=== PATIENT | female | born 1965 | race Two or more races ===

== ENCOUNTER → 2020-04-17 | Outpatient (CLI) | payer OTHER | END | disposition home or self-care (01) | LOC: LAB 10:36 | PROVIDERS: ATTEND Preventive Medicine Preventive Medicine/Occupational Environmental Medicine | DX: Z02.1 Encounter for pre-employment examination (principal) | CPT/HCPCS: 36415; 86706; 86735; 86762; 86765; 86787 ==

== ENCOUNTER 2020-06-10 13:26 | Emergency (ER) | payer MEDICAID, OTHER ==
[~2020-06-10] VITALS: Ht 160 cm; Wt 78.0 kg
[2020-06-10 13:50] VITALS: BP 141/104
[2020-06-10] MEDS ORDERED: HYDROmorphone HCL 2 MG/ML VL IM ONE (14:30)
[2020-06-10] MEDS ORDERED: PROMETHAZINE HCL 25 MG/ML 1ML IM ONE (14:30)
== END 2020-06-10 15:27 | disposition home or self-care (01) ==
LOC: ER 13:26
DX: G43.909 Migraine, unspecified, not intractable, without status migrainosus (principal); R11.0 Nausea; I50.9 Heart failure, unspecified
CPT/HCPCS: 96372; 99284; J1170; J2550

== ENCOUNTER → 2020-07-07 | Outpatient (CLI) | payer OTHER | END | disposition home or self-care (01) | LOC: LAB 10:40 | PROVIDERS: ATTEND Physician Assistant | DX: Z20.828 Contact with and (suspected) exposure to other viral communicable diseases (principal) | CPT/HCPCS: C9803; U0003 ==

== ENCOUNTER 2020-08-19 11:45 | Emergency (ER) | payer BC, MEDICAID ==
[~2020-08-19] VITALS: Ht 160 cm; Wt 70.8 kg
[2020-08-19] MEDS ORDERED: ACETAMINOPHEN 325 MG TAB PO ONE (16:15)
[2020-08-19] MEDS ORDERED: ONDANSETRON ODT 4 MG TAB PO ONE (16:15)
[2020-08-19] MEDS ORDERED: cefTRIAXone SOD 1,000 MG VL IM ONE (16:15)
[2020-08-19] MEDS ORDERED: DOXYCYCLINE 100 MG TAB/CAP PO ONE (17:00)
[2020-08-19 17:11] VITALS: BP 100/85
== END 2020-08-19 17:18 | disposition home or self-care (01) ==
LOC: ER 11:45 → EEVIPCON 11:45 → ER 17:18
DX: U07.1 COVID-19 (principal); I11.0 Hypertensive heart disease with heart failure; I50.9 Heart failure, unspecified
CPT/HCPCS: 36415; 71045; 87426; 96372; 99284; J0696; Q0162

== ENCOUNTER → 2020-08-19 | Outpatient (CLI) | payer BC ==
[2020-08-19 09:29] LABS: Basophils # (auto) 0 10 ^3/uL (0-0.2); Basophils % (auto) 0.3 % (0.0-2.0); Eosinophils # (auto) 0 10 ^3/uL (0-0.8); Eosinophils % (auto) 0.3 % (0.0-7.0); Hematocrit 43.1 % (36.0-46.0); Hemoglobin 14.5 g/dL (12.2-16.2); Lymphocytes # (auto) 1.1 10 ^3/uL (0.4-5.4); Lymphocytes % (auto) 27.1 % (10.0-50.0); Mean Corpuscular Hemoglobin 29.4 pg (28.0-32.0); Mean Corpuscular Hgb Conc. 33.5 g/dL (32.0-36.0); Mean Corpuscular Volume 87.6 fL (80.0-100.0); Monocytes # (auto) 0.5 10 ^3/uL (0-1.3); Monocytes % (auto) 12.7 % (0.0-12.0); Neutrophils # (auto) 2.4 10 ^3/uL (1.6-8.6); Neutrophils % (auto) 59.6 % (37.0-80.0); Platelet Count (auto) 196 10^3/uL (140-450); Red Blood Cells 4.93 10^6/uL (4.0-5.20); Red Cell Distribution Width 13.4 % (11.8-14.3); White Blood Cell 4.1 10^3/uL (4.4-10.8)
[2020-08-19 09:53] LABS: Potassium 3.9 mmol/L (3.5-5.1)
[2020-08-19 10:02] LABS: Albumin 4.2 g/dL (3.4-5.0); BUN/Creatinine Ratio 18.8; Bilirubin, Total 0.5 mg/dL (0.2-1.0); Calcium 9.4 mg/dL (8.5-10.1); Total Protein 7.6 g/dL (6.4-8.2)
[2020-08-19 10:06] LABS: Urine Bacteria NONE SEEN /hpf (None Seen); Urine Blood 1+ /uL (Negative); Urine Mucus FEW (None Seen); Urine Specific Gravity 1.023 (1.001-1.035); Urine WBC 26 /hpf (0 - 5)
== END | disposition home or self-care (01) ==
LOC: LAB 08:45
PROVIDERS: ATTEND Internal Medicine
DX: E78.5 Hyperlipidemia, unspecified (principal); E03.9 Hypothyroidism, unspecified
CPT/HCPCS: 36415; 80053; 80061; 81001; 83036; 84443; 85025

== ENCOUNTER 2020-09-17 14:23 | Inpatient (IN) | payer BC, MEDICAID ==
[~2020-09-17] VITALS: Ht 160 cm; Wt 66.2 kg
[2020-09-17] MEDS ORDERED: SODIUM CHLORIDE 0.9% 1,000 ML IV ONE (14:45)
[2020-09-17] MEDS ORDERED: ONDANSETRON ODT 4 MG TAB PO ONE (14:45)
[2020-09-17 15:46] LABS: Urine Amorphous Crystal FEW /hpf (None Seen); Urine Bacteria FEW /hpf (None Seen); Urine Blood Negative /uL (Negative); Urine Specific Gravity 1.014 (1.001-1.035); Urine WBC 1 /hpf (0 - 5)
[2020-09-17 16:23] LABS: Basophils # (auto) 0 10 ^3/uL (0-0.2); Basophils % (auto) 0.3 % (0.0-2.0); Eosinophils # (auto) 0 10 ^3/uL (0-0.8); Eosinophils % (auto) 0.7 % (0.0-7.0); Hematocrit 40.8 % (36.0-46.0); Hemoglobin 13.8 g/dL (12.2-16.2); Lymphocytes # (auto) 1.4 10 ^3/uL (0.4-5.4); Lymphocytes % (auto) 21.2 % (10.0-50.0); Mean Corpuscular Hemoglobin 29.4 pg (28.0-32.0); Mean Corpuscular Volume 86.6 fL (80.0-100.0); Monocytes # (auto) 0.4 10 ^3/uL (0-1.3); Monocytes % (auto) 6.1 % (0.0-12.0); Neutrophils # (auto) 4.9 10 ^3/uL (1.6-8.6); Neutrophils % (auto) 71.7 % (37.0-80.0); Nucleated Red Blood Cells % 0.1 %; Platelet Count (auto) 211 10^3/uL (140-450); Red Blood Cells 4.71 10^6/uL (4.0-5.20); Red Cell Distribution Width 13.4 % (11.8-14.3); White Blood Cell 6.8 10^3/uL (4.4-10.8)
[2020-09-17 16:42] LABS: Calcium 9.3 mg/dL (8.5-10.1); Potassium 3.8 mmol/L (3.5-5.1)
[2020-09-17 16:48] LABS: BUN/Creatinine Ratio 23.1; Bilirubin, Total 0.6 mg/dL (0.2-1.0); CRP High Sensitivity 0.09 mg/dL (< 0.3); Total Protein 7.3 g/dL (6.4-8.2)
[2020-09-17] MEDS ORDERED: ONDANSETRON HCL 4 MG/2 ML VIAL IV ONE (20:30)
[2020-09-17] MEDS ORDERED: PROCHLORPERAZINE EDISYLATE 5 MG/ML 2ML VIAL IV ONE (20:30)
[2020-09-18] MEDS ORDERED: ACETAMINOPHEN 325 MG TAB PO PRN
[2020-09-18] MEDS ORDERED: NITROGLYCERIN 0.4 MG SL TAB SL PRN
[2020-09-18] MEDS ORDERED: ONDANSETRON HCL 4 MG/2 ML VIAL IV PRN
[2020-09-18] MEDS ORDERED: DOCUSATE SOD 100 MG CAP PO PRN
[2020-09-18] MEDS ORDERED: HYDROcodone-ACET 5/325MG TAB PO PRN
[2020-09-18] MEDS ORDERED: MORPHINE SULF INJ 2 MG/ML SYRINGE 1ML IV PRN
[2020-09-18] MEDS ORDERED: SODIUM CHLOR 0.9% PF (SALINE LOCK) 10ML VIAL/SYR IV SCH (06:00)
[2020-09-18] MEDS ORDERED: LEVOTHYROXINE SODIUM 100 MCG TAB PO SCH (07:00)
[2020-09-18 07:20] VITALS: BP 107/80
[2020-09-18] MEDS ORDERED: ASCORBIC ACID 500 MG TAB PO SCH (10:00)
[2020-09-18] MEDS ORDERED: MULTIPLE VITAMIN TAB PO SCH (10:00)
[2020-09-18] MEDS ORDERED: ZINC SULFATE 220mg CAP or TAB PO SCH (10:00)
[2020-09-18] MEDS ORDERED: FAMOTIDINE 20 MG TAB PO SCH (10:00)
[2020-09-18] MEDS ORDERED: ENOXAPARIN SOD 40 MG/0.4 ML SYRINGE SC SCH (10:00)
== END 2020-09-18 12:23 | disposition left against medical advice (07) | DRG 948 ==
LOC: ER 14:23 → TELE-CENTR 14:24
PROVIDERS: ADMIT Nurse Practitioner Family; ATTEND Family Medicine
DX: R53.1 Weakness (principal); I11.0 Hypertensive heart disease with heart failure; I50.9 Heart failure, unspecified; Z20.828 Contact with and (suspected) exposure to other viral communicable diseases; E78.5 Hyperlipidemia, unspecified; R11.0 Nausea; R42 Dizziness and giddiness; Z53.29 Procedure and treatment not carried out because of patient's decision for other reasons; Z82.49 Family history of ischemic heart disease and other diseases of the circulatory system; Z80.9 Family history of malignant neoplasm, unspecified; Z90.710 Acquired absence of both cervix and uterus
CPT/HCPCS: 36415; 80053; 81001; 82728; 85025; 86141; 96361; 96374; G0378; Q0162

== ENCOUNTER → 2020-10-15 | Outpatient (CLI) | payer BC | END | disposition home or self-care (01) | LOC: LAB 12:57 | PROVIDERS: ATTEND Internal Medicine | DX: E03.9 Hypothyroidism, unspecified (principal) | CPT/HCPCS: 36415; 84443 ==

== ENCOUNTER → 2020-11-23 | Outpatient (CLI) | payer BC | END | disposition home or self-care (01) | LOC: XYW 07:46 | PROVIDERS: ATTEND Internal Medicine | DX: I07.1 Rheumatic tricuspid insufficiency (principal); R07.9 Chest pain, unspecified | CPT/HCPCS: 93306 ==

== ENCOUNTER → 2020-12-30 | Day surgery (SDC) | payer BC ==
[2020-12-25 10:54] LABS: Urine Bacteria NONE SEEN /hpf (None Seen); Urine Blood Negative /uL (Negative); Urine Specific Gravity 1.008 (1.001-1.035); Urine WBC 2 /hpf (0 - 5)
[2020-12-25 11:06] LABS: Basophils # (auto) 0 10 ^3/uL (0-0.2); Basophils % (auto) 0.5 % (0.0-2.0); Eosinophils # (auto) 0.2 10 ^3/uL (0-0.8); Eosinophils % (auto) 2.3 % (0.0-7.0); Hematocrit 39.6 % (36.0-46.0); Hemoglobin 13.5 g/dL (12.2-16.2); Lymphocytes % (auto) 29.7 % (10.0-50.0); Mean Corpuscular Hemoglobin 30.5 pg (28.0-32.0); Mean Corpuscular Hgb Conc. 34.1 g/dL (32.0-36.0); Mean Corpuscular Volume 89.4 fL (80.0-100.0); Monocytes # (auto) 0.5 10 ^3/uL (0-1.3); Monocytes % (auto) 6.9 % (0.0-12.0); Neutrophils # (auto) 4.1 10 ^3/uL (1.6-8.6); Neutrophils % (auto) 60.6 % (37.0-80.0); Nucleated Red Blood Cells % 0.1 %; Platelet Count (auto) 268 10^3/uL (140-450); Red Blood Cells 4.43 10^6/uL (4.0-5.20); Red Cell Distribution Width 14.5 % (11.8-14.3); White Blood Cell 6.8 10^3/uL (4.4-10.8)
[2020-12-25 11:12] LABS: INR 0.93 (0.9-1.15); Partial Thromboplastin Time 22.6 sec (23.0-31.2)
[2020-12-25 11:37] LABS: Potassium 4.2 mmol/L (3.5-5.1)
[2020-12-25 11:46] LABS: Albumin 3.9 g/dL (3.4-5.0); BUN/Creatinine Ratio 19.7; Bilirubin, Total 0.5 mg/dL (0.2-1.0); Total Protein 7.5 g/dL (6.4-8.2)
[~2020-12-30] VITALS: Ht 152.4 cm; Wt 66.2 kg
[~2020-12-30] MED LIST: CAR3125T PO; DULO1CAP5 PO; FURO1TAB33 PO; KETOROLAC TROMETH 30 MG/ML 1ML VIAL IV ONE; KETOROLAC TROMETH 30 MG/ML 1ML VIAL ONE; LEVO50TA7 PO; LIDOCAINE 2% (LOCAL ANESTH.) PF 5ml SDV ONE; MIDAZOLAM HCL 1MG/1ML-2 ML VIAL ONE; ONDANSETRON HCL 4 MG/2 ML VIAL IV PRN; POTA-220 PO; PREG75CA PO; PROPOFOL 10 MG/ML 20 ML IV ONE; SIMV-13 PO; fentaNYL CITRATE 100 MCG/2 ML VL ONE
[2020-12-30 15:15] VITALS: BP 139/90
== END | disposition home or self-care (01) ==
LOC: GI 12:48
PROVIDERS: ATTEND Internal Medicine Gastroenterology
DX: R19.4 Change in bowel habit (principal); D12.2 Benign neoplasm of ascending colon; D12.3 Benign neoplasm of transverse colon; K64.8 Other hemorrhoids; M79.9 Soft tissue disorder, unspecified; I11.0 Hypertensive heart disease with heart failure; G43.909 Migraine, unspecified, not intractable, without status migrainosus; E03.9 Hypothyroidism, unspecified; M79.7 Fibromyalgia; I34.1 Nonrheumatic mitral (valve) prolapse; U07.1 COVID-19; R56.9 Unspecified convulsions; Z86.010 Personal history of colon polyps; Z90.710 Acquired absence of both cervix and uterus; Z98.890 Other specified postprocedural states; Z79.899 Other long term (current) drug therapy; Z79.890 Hormone replacement therapy
CPT/HCPCS: 36415; 45380; 80053; 81001; 85025; 85610; 85730; J1885; J2001; J2250; J2704; J3010; J7030; U0003; 99152; 99153